=== PATIENT | male | born 1935 | race Caucasian/White ===

== ENCOUNTER 2017-04-16 18:57 | Inpatient (IN) | payer MEDICARE, MEDICAID ==
--- NOTE | 2017-04-16 19:12 | ED Physician Chart ---
Chief Complaint/HPI - Patient Information Date Seen:: 04/16/17 Time Seen:: 19:05 Chief Complaint:: Abdominal Pain History of Present Illness:: onset x 2 days of intermittent, crampy, RUQ Abd. Pain; pt denies C/P, SOB, A/N/V /D/C, fever, chills, or urinary s/s Historian:: Patient, Family Member Review:: Nurse's Note Reviewed Review of Systems - Review of Systems General/Constitutional: Fever, Chills, No weight loss, No weakness, No diaphoresis, No edema, No loss of appetite Skin: No skin lesions, No rash, No bruising Head: No headache, No light-headedness Eyes: No loss of vision, No pain, No diplopia ENT: No earache, No nasal drainage, No sore throat, No tinnitus Neck: No neck pain, No swelling, No thyromegaly, No stiffness, No mass noted Cardio Vascular: No chest pain, No palpitations, No PND, No orthopnea, No edema Pulmonary: No SOB, No cough, No sputum, No wheezing GI: Nausea, Vomiting, Diarrhea, Pain, No melena, No hematochezia, Constipation, No hematemesis G/U: No dysuria, No frequency, No hematuria, Nocturia Musculoskeletal: No bone or joint pain, No back pain, No muscle pain Endocrine: No polyuria, No polydipsia Psychiatric: No prior psych history, No depression, No anxiety, No suicidal ideation Hematopoietic: No bruising, No lymphadenopathy Allergic/Immuno: No urticaria, No angioedema Neurological: No syncope, No focal symptoms, No weakness, No paresthesia, No headache, No seizure, No dizziness, No confusion, No vertigo Past Medical History - Past Medical History Obtainable: Yes Past Medical History: Thyroid disorder, Other (Prostate Disease) Family History: Diabetes Melitus, HTN Social History: Non Smoker, No Alcohol, No Drug Use, Single Surgical History: None Psychiatricy History: None Medication: Reviewed Family Medical History - Family Member Son Ethnicity: Non- Living Status: Still Living Physical Exam - Physical Examination General/Constitutional: Awake, Well-developed, well-nourished, Alert, No distress, GCS 15, Non-toxic appearing, Ambulatory Head: Atraumatic Eyes: Lids, conjuctiva normal, PERRL, EOMI Skin: Nl inspection, No rash, No skin lesions, No ecchymosis, Well hydrated, No lymphadenopathy ENMT: External ears, nose nl, Nasal exam nl, Lips, teeth, gums nl Neck: Nontender, Full ROM w/o pain, No JVD, No nuchal rigidity, No bruit, No mass, No stridor Respiratory: Nl effort/Exclusion, Clear to Auscultation, No Wheeze/Rhonchi/Rales Cardio Vascular: RRR, No murmur, gallop, rubs, NL S1 S2 GI: No tenderness/rebounding/guarding, No organomegaly, No hernia, Normal BS's, Nondistended, No mass/bruits, No McBurney tenderness : No CVA tenderness Extremities: No tenderness or effusion, Full ROM, normal strength in all extremities, No edema, Normal digits & nails Neuro/Psych: Alert/oriented, DTR's symmetric, Normal sensory exam, Normal motor strength, Judgement/insight normal, Mood normal, Normal gait, No focal deficits Misc: normal gait, Normal back, No paraspinal tenderness Labs/Radiology/EKG Results - Lab Results Results: WBC: 19.1; Na+: 131;BNP: 294; - Radiology Results Results: + Liver Mass; Mesenteric Edema; Diverticulosis - EKG Interpretations Rate & Rhythm: NSR Comments:: Non-Specific ST-T Changes ED Septic Shock - . Is Septic Shock (SBP<90, OR Lactate>4 mmol\L) present?: No Reassessment (Disposition) - Reassessment Reassessment Condition:: Improved - Diagnosis Diagnosis:: Abdominal Pain; Liver Mass; Diverticulosis; PNA; Sepsis; Leukocytosis - Aftercare/Follow up Instructions Aftercare/Follow-Up Instructions:: Counseled pt regarding lab results/diagnosis & need follow up, Counseled pt & family regarding lab results/diagnosis & need follow up - Patient Disposition Discharge/Transfer:: Acute Care w/in this hosp Accepting Physician:: Dr. Webber Time Called:: 2099 Time Responded:: 21:00 Admitted to:: Med/Surg Spoke to:: Dr. Webber Admitting Medical Physician:: Dr. Webber Condition at Disposition:: Stable, Improved
[2017-04-16] MEDS ORDERED: Sodium Chloride 0.9% 1,000 ML IV ONE ×2 (19:13→21:32)
[2017-04-16 19:31] LABS: HEMATOCRIT 50.9 % (39.0-49.0); HEMOGLOBIN 17.2 gm/dL (12.6-17.4); MEAN CELL VOLUME 97.9 fl (80-99); MEAN CORPUSCULAR HEMOGLOBIN 33.1 pg (27.0-31.0); MEAN CORPUSCULAR HGB CONC 33.8 pg (28.0-36.0); MEAN PLATELET VOLUME 10.5 fl; PLATELET COUNT 112 Th/cmm (150-400); RED CELL DISTRIBUTION WIDTH 14.2 % (11.5-20.0)
[2017-04-16] MEDS ORDERED: Albuterol/Ipratropium Neb 3 ML AERS HHN ONE ×2 (19:48→19:52)
[2017-04-16 19:51] LABS: WHITE BLOOD COUNT 19.1 Th/cmm (4.8-10.8)
[2017-04-16 19:56] LABS: ALB/GLOB RATIO 1.2 (1.0-1.8); ALKALINE PHOSPHATASE 115 U/L (34-104); AMYLASE SERUM 38 U/L (29-103); ANION GAP 14.7 (7.0-16.0); BILIRUBIN,TOTAL 2.6 mg/dL (0.3-1.0); BUN - UREA NITROGEN 12 mg/dL (7-25); CALCIUM SERUM 9.6 mg/dL (8.6-10.3); CARBON DIOXIDE 20.2 mEq/L (21.0-31.0); CHLORIDE 100 mEq/L (98-107); CHOLESTEROL 133 mg/dL (<200); CREATININE - SERUM 0.8 mg/dL (0.7-1.3); GLUCOSE 174 mg/dL (70-105); LIPASE 18 U/L (11-82); POTASSIUM SERUM 3.9 mEq/L (3.5-5.1); SGOT 42 U/L (13-39); SGPT/ALT 40 U/L (7-52); SODIUM SERUM 131 mEq/L (136-145); TRIGLYCERIDES 79 mg/dL (<150)
[2017-04-16 19:58] LABS: TROP I < 0.01 ng/mL (0.01-0.05)
[2017-04-16 20:07] LABS: INR 1.15 (0.5-1.4); PROTHROMBIN TIME (TEST) 12.1 SECONDS (9.5-11.5)
[2017-04-16] MEDS ORDERED: Levofloxacin 500mg/100mL 500 MG/100 ML BAG IV ONE ×2 (20:40→20:49)
[2017-04-16 20:45] LABS: BAND NEUTROPHILE 4 % (0-10); BASOPHIL 0 % (0-3); EOSINOPHIL 0 % (0-5); NEUTROPHILS 82 % (40-80); PLATELET ESTIMATE ADEQUATE (NORMAL); PLATELET MORPHOLOGY NORMAL (NORMAL); TOTAL CELLS COUNTED 100
[2017-04-16 21:10] LABS: URINE BILIRUBIN NEGATIVE (NEGATIVE); URINE BLOOD TRACE (NEGATIVE); URINE GLUCOSE (UA) NEGATIVE (NEGATIVE); URINE KETONE 15 mg/dL (NEGATIVE); URINE PROTEIN TRACE mg/dL (NEGATIVE); URINE UROBILINOGEN 0.2 E.U./dL (0.2 - 1.0)
[2017-04-16 21:28] LABS: URINE COLOR YELLOW
[2017-04-16 21:29] LABS: URINE BACTERIA NONE SEEN /hpf (NONE SEEN); URINE EPITHELIAL CELLS NONE SEEN /lpf (FEW); URINE RBC NONE SEEN /hpf (0-5); URINE WBC NONE SEEN /hpf (0-5)
[2017-04-16] MEDS ORDERED: Piperacillin Sodium/Tazobact 3.375 gm Vial IV ONE (22:19)
[2017-04-16] MEDS: Morphine Sulfate 2 mg/mL 1mL Syr IVP PRN (22:31)
[2017-04-16] MEDS: metroNIDAZOLE 500mg/NS 100mL 500 MG/100 ML BAG IV SCH (22:31)
[2017-04-16] MEDS: D5-0.45NS 1,000 ML IV SCH (22:32)
--- NOTE | 2017-04-16 23:46 | Admit Criteria Form ---
Admit Criteria Forms - Admit Criteria Diagnosis: ABDOMINAL PAIN Clinical Indications for Admission to Inpatient Care (Place 'X' for any and all applicable criteria): Admission is indicated for ANY ONE of the following(1)(2)(3)(4)(5): [X ]I. Inpatient admission required rather than observation care (Also use Abdominal Pain: Observation Care, as appropriate) because of ANY ONE of the following: [ ]a) Severe pain requiring acute inpatient management [X ]b) Identification of etiology/finding that requires inpatient care (eg, aortic dissection, free air) [ ]c) Absent bowel sounds with complete ileus(6) [ ]d) Suspected toxic megacolon [ ]e) Severe electrolyte abnormalities requiring inpatient care [ ]f) High fever or infection requiring inpatient admission as indicated by ANY ONE of following(7)(8): [ ] i) Appropriate outpatient or observational care antimicrobial treatment unavailable, not effective, or not feasible [ ] ii) Documented bacteremia [ ] iii) Temperature > 104.9 degrees F (oral) [ ] iv) T >103.1 F (oral) or < 96.8 F(rectal) that does not respond to all emergency treatment measures [ ]g) Signs of intestinal obstruction [B] [ ]h) Hemodynamic instability [ ]i) IV fluid to replace significant ongoing losses (greater than 3 L/m2 per day) (12)(13) [ ]j) Percutaneous or open drainage (eg, abscess, biliary tract ) procedures [ ]k) Parenteral nutrition regimen that must be implemented on inpatient basis [ ]l) Other condition,treatment or monitoring requiring inpatient admission. [ ]II. Peritoneal signs present [ ]III. Surgery needed that cannot be performed on an ambulatory basis. [ ]IV. Evaluation requires patient to not eat or drink for extended period ( eg, more than 24 hours). [ ]V. Contraindications and/or Inappropriate clinical situations for Observational Care in patients with abdominal pain, when ANY ONE of the following is required: [ ]a) Thorough evaluation is required to prevent catastrophic events due to delays in diagnosing (e.g.Mesenteric ischemia) 1,3 [ ]b) Patient with severe pathology or with chronic symptoms unlikely to improve in the ED stay (3) [X ]. General contraindications and/or Inappropriate clinical situations for Observational Care in patients with abdominal pain, when ANY ONE of the following is required: [X ]a) Prediction of prolongation of LOS based on ANY ONE of the following may be considered as a contraindication for observational care 2, 3, 4, 5, 6, 7, 8, 9, 10, 11 [X ]i) Age > 65 yrs. [ ]ii) Patient arriving by ambulance [ ]iii) Patient with high acuity [ ]iv) Patient requiring vital sign monitoring [ ]v) Patient on IV medication [ ]b) Systolic blood pressures 180mmHg 3,12 [ ]c) Patient with altered mental status including delirium and other alteration of consciousness, (3) [ ]d) Patient whose discharge disposition will be to a correction home or rehabilitation home should not be managed in Emergency Department Observation Unit. CMS rule requires 3 days hospital stay before such placement.3,13 [ ]e) Patient with failure to thrive due to broad array of etiologies 3,16,17 [ ]f) Inability to ambulate 3,14 Extended stay beyond goal length of stay may be needed for(2)(3): [ ]a) Persistent abdominal pain with suspected intra-abdominal process [ ]b) Diagnosed condition requiring continued stay (e.g., pancreatitis, complicated diverticulitis) [ ]c) Surgery (e.g., colectomy) The original [email or web address] content created by [email or web address] has been revised. The portions of the content which have been revised are identified through the use of italic text or in bold, and [facility] has neither reviewed nor approved the modified material.All other unmodified content is copyright [facility]. Please see references footnoted in the original [facility] edition 2016 Admit Criteria Met?: Yes
--- NOTE | 2017-04-17 00:55 | History & Physical ---
ADMIT DATE: 04/16/2017 CHIEF COMPLAINT: Abdominal pain for 2 days duration. HISTORY OF PRESENT ILLNESS: The patient is an 81-year-old male with long history of hypothyroidism, benign prostatic hypertrophy, presented to the Emergency Room complaining of abdominal pain for a few days' duration. No nausea, no vomiting, evaluated by the ER physician. Initial workup was significant for a mass at the right side of the abdomen around the liver causing obstruction gallbladder. The patient was admitted to the hospital, started on IV fluids, and clear liquid diet. Dr. Ca consulted on the case. The patient denies any history of cholelithiasis or liver disease. He has history of peptic ulcer disease many years ago. PAST SURGICAL HISTORY: Significant for exploratory laparotomy for peptic ulcer disease. ALLERGIES: None. MEDICATIONS: Follow admission reconciliation. SOCIAL HISTORY: No smoking, no alcohol, no drug. FAMILY HISTORY: Noncontributory. REVIEW OF SYSTEMS: RENAL SYSTEM: No history of chronic renal disorder. CARDIOVASCULAR SYSTEM: No coronary artery disease. ENDOCRINE: No diabetes mellitus. He has history of hypothyroidism. GASTROINTESTINAL: He has acute abdominal pain, has history of peptic ulcer disease. NEUROLOGICAL SYSTEM: No seizure disorder. SKELETOMUSCULAR SYSTEM: No muscular dystrophy. HEMATOLOGIC SYSTEM: . GENITOURINARY: No dysuria or hematuria. PHYSICAL EXAMINATION: GENERAL: He is awake, alert, oriented, mildly in pain, not in distress. VITAL SIGNS: Temperature is 98.8, heart rate 86, blood pressure 131/63. HEENT: Normocephalic. Pupils reacting to light and accommodation. Sclerae clear. NECK: Supple. Negative for lymphadenopathy, JVD or bruit. CHEST: Bilateral normal. No rhonchi or wheezing. HEART: S1, S2 normal. No murmurs, rubs or gallop. ABDOMEN: Soft, mild tenderness to the right upper abdomen. Rebound negative. Bowel sounds positive. EXTREMITIES: No edema. NEUROLOGIC: Awake, alert, oriented. No focal motor or sensory deficits. Cranial nerves 2-12 is intact. LABORATORY DATA: White blood cells 19.1, hemoglobin 17.2, hematocrit 50.9, platelet is 112. PT 12.1, INR 1.15. Sodium 131, potassium 3.9, BUN 12, creatinine 0.8, glucose 174, AST 42, ALT 14, alkaline phosphatase 115. BNP 294. ASSESSMENT: 1. Acute abdominal pain. 2. Leukocytosis, possible acute cholecystitis. 3. Benign prostatic hypertrophy. 4. Hypothyroidism. 5. Thrombocytopenia. PLAN: The patient was admitted to the hospital under Dr. Martinez's service, IV fluid, IV Protonix, IV antibiotics, clear liquid diet. Dr. Ca consulted on the case. CBC, CMP for tomorrow. The patient is a full code. JOB# [id number]
[2017-04-17] MEDS ORDERED: Piperacillin Sodium/Tazobact 3.375 gm Vial IV ONE (04:42)
[2017-04-17] MEDS: metroNIDAZOLE 500mg/NS 100mL 500 MG/100 ML BAG IV SCH (04:44)
[2017-04-17 07:44] LABS: ALB/GLOB RATIO 1.2 (1.0-1.8); ALKALINE PHOSPHATASE 77 U/L (34-104); ANION GAP 13.1 (7.0-16.0); BILIRUBIN,TOTAL 2.1 mg/dL (0.3-1.0); BUN - UREA NITROGEN 13 mg/dL (7-25); BUN/CREATININE RATIO 18.6; CALCIUM SERUM 8.5 mg/dL (8.6-10.3); CARBON DIOXIDE 17.4 mEq/L (21.0-31.0); CHLORIDE 105 mEq/L (98-107); CREATININE - SERUM 0.7 mg/dL (0.7-1.3); GLUCOSE 144 mg/dL (70-105); POTASSIUM SERUM 3.5 mEq/L (3.5-5.1); SGOT 41 U/L (13-39); SGPT/ALT 37 U/L (7-52); SODIUM SERUM 132 mEq/L (136-145)
[2017-04-17 07:46] LABS: MEAN CELL VOLUME 96.7 fl (80-99); MEAN CORPUSCULAR HEMOGLOBIN 33.6 pg (27.0-31.0); MEAN CORPUSCULAR HGB CONC 34.8 pg (28.0-36.0); MEAN PLATELET VOLUME 11.1 fl; RED BLOOD COUNT 4.34 Mil/cmm (3.80-5.80); RED CELL DISTRIBUTION WIDTH 14.3 % (11.5-20.0)
[2017-04-17 08:34] LABS: HEMATOCRIT 41.9 % (39.0-49.0); HEMOGLOBIN 14.6 gm/dL (12.6-17.4); PLATELET COUNT NOT ABLE TO PERFORM Th/cmm (150-400)
[2017-04-17 09:13] LABS: BAND NEUTROPHILE 14 % (0-10); NEUTROPHILS 76 % (40-80); PLATELET ESTIMATE DECREASED PLATELETS (NORMAL); PLATELET MORPHOLOGY NORMAL (NORMAL); TOTAL CELLS COUNTED 100
--- NOTE | 2017-04-17 09:57 | Diagnostic Imaging Report ---
CHEST X-RAY: AP view INDICATION: pain COMPARISON: None FINDINGS: Chronic lung changes are seen with bibasal subsegmental atelectasis versus scarring. No focal consolidation or pleural effusions. Heart size is normal. Atherosclerosis is noted. Degenerative changes of the spine and shoulders are noted. IMPRESSION: Chronic lung changes and bibasal subsegmental atelectasis versus scarring. No focal consolidation identified. Atherosclerotic vascular disease.
--- NOTE | 2017-04-17 10:32 | Diagnostic Imaging Report ---
CT abdomen and pelvis without intravenous contrast Indication: Abdominal pain Comparison: None, Technique: Axial images were obtained from the lung bases to the bilateral proximal femurs without IV contrast. Coronal reconstructions were made. total DLP: 642, CTDI12.1 FINDINGS: Atelectatic changes and hypodensity changes of the lung bases are noted. Exam is limited due to lack of IV contrast. Cirrhotic liver is seen with areas of heterogeneous density. The gallbladder is markedly distended containing intraluminal high density intraluminal mass. Mild surrounding inflammatory changes are also noted. A trace free fluid is seen tracking down the gallbladder fossa. No focal splenic lesions. No evidence of focal pancreatic lesions. No focal adrenal lesions. There is a 2.1 cm left renal cyst. No evidence of hydronephrosis or focal renal lesions. Enlarged prostate measuring 6.8 x 4 cm. Moderate amount of stool is seen throughout the colon. Bowel underdistention versus there bowel wall thickening of the ascending colon noted. No appendicitis. No evidence of free abdominal air. Atherosclerotic vascular disease is noted. The urinary bladder is underdistended limiting evaluation. A small left-sided urinary bladder wall diverticulum is noted. Degenerative changes of the spine are noted. IMPRESSION: Distended gallbladder with intraluminal density which may represent a mass lesion. Neoplastic process cannot be excluded. Other etiologies would include intraluminal gallbladder hemorrhage or less likely gallstones. There may be superimposed cholecystitis as surrounding mild inflammatory changes and trace fluid is noted. Recommend clinical correlation and follow-up with ultrasound. Mild diverticulosis without evidence of diverticulitis. There is a bowel wall prominence of the ascending colon are noted which may be due to underdistention versus less likely inflammatory process. Suspect early cirrhotic changes of the liver. There are heterogeneous areas with areas of low density within the right lobe of the liver which may be due to areas of fatty infiltration, however, occult lesion cannot be excluded. Recommend short-term follow-up CT with IV contrast. Enlarged prostate gland. Please clinically clinical findings. Left renal cyst. Small left-sided urinary bladder wall diverticulum. Mild atherosclerotic vascular disease.
[2017-04-17] MEDS ORDERED: VTE Chemical Prophylaxis Screen/Admission MC PRN (11:45)
[2017-04-17] MEDS: D5-0.45NS 1,000 ML IV SCH ×2 (12:48→23:19)
--- NOTE | 2017-04-17 16:05 | General Progress Note ---
Subjective - Review of Systems Service Date: 04/17/17 Events since last encounter: seen in consult CT distended GB LFT high, question of cirrhosis MRCP ordered Objective - Results Result Diagrams: 04/17/17 07:00 04/17/17 07:00 Recent Labs: Laboratory Last Values WBC 15.0 Th/cmm (4.8-10.8) H D 04/17/17 07:00 RBC 4.34 Mil/cmm (3.80-5.80) 04/17/17 07:00 Hgb 14.6 gm/dL (12.6-17.4) D 04/17/17 07:00 Hct 41.9 % (39.0-49.0) D 04/17/17 07:00 MCV 96.7 fl (80-99) 04/17/17 07:00 MCH 33.6 pg (27.0-31.0) H 04/17/17 07:00 MCHC Differential 34.8 pg (28.0-36.0) 04/17/17 07:00 RDW 14.3 % (11.5-20.0) 04/17/17 07:00 Plt Count NOT ABLE TO PERFORM Th/cmm (150-400) D 04/17/17 07:00 MPV 11.1 fl 04/17/17 07:00 Band Neutrophils % 14 % (0-10) H 04/17/17 07:00 Neutrophils (Manual) 76 % (40-80) 04/17/17 07:00 Lymphocytes 6 % (20-50) L 04/17/17 07:00 Monocytes 4 % (2-10) 04/17/17 07:00 Eosinophils 0 % (0-5) 04/16/17 19:23 Basophils 0 % (0-3) 04/16/17 19:23 Platelet Estimate DECREASED PLATELETS (NORMAL) 04/17/17 07:00 Platelet Morphology NORMAL (NORMAL) 04/17/17 07:00 RBC Morph Micro Appear NORMAL (NORMAL) 04/17/17 07:00 PT 12.1 SECONDS (9.5-11.5) H 04/16/17 19:23 INR 1.15 (0.5-1.4) 04/16/17 19:23 Sodium 132 mEq/L (136-145) L 04/17/17 07:00 Potassium 3.5 mEq/L (3.5-5.1) 04/17/17 07:00 Chloride 105 mEq/L (98-107) 04/17/17 07:00 Carbon Dioxide 17.4 mEq/L (21.0-31.0) L 04/17/17 07:00 Anion Gap 13.1 (7.0-16.0) 04/17/17 07:00 BUN 13 mg/dL (7-25) 04/17/17 07:00 Creatinine 0.7 mg/dL (0.7-1.3) 04/17/17 07:00 Est GFR ( Amer) TNP 04/17/17 07:00 Est GFR (Non-Af Amer) TNP 04/17/17 07:00 BUN/Creatinine Ratio 18.6 04/17/17 07:00 Glucose 144 mg/dL (70-105) H 04/17/17 07:00 Whole Bld Lactic Acid 2.63 mmol/L (0.60-1.99) H* 04/16/17 22:48 Calcium 8.5 mg/dL (8.6-10.3) L 04/17/17 07:00 Total Bilirubin 2.1 mg/dL (0.3-1.0) H 04/17/17 07:00 AST 41 U/L (13-39) H 04/17/17 07:00 ALT 37 U/L (7-52) 04/17/17 07:00 Alkaline Phosphatase 77 U/L (34-104) 04/17/17 07:00 Creatine Kinase 73 U/L (30-223) 04/16/17 19:23 Troponin I < 0.01 ng/mL (0.01-0.05) L 04/16/17 19:23 B-Natriuretic Peptide 294.0 pg/mL (5.0-100.0) H 04/16/17 19:23 Total Protein 5.7 gm/dL (6.0-8.3) L 04/17/17 07:00 Albumin 3.1 gm/dL (4.2-5.5) L 04/17/17 07:00 Globulin 2.6 gm/dL 04/17/17 07:00 Albumin/Globulin Ratio 1.2 (1.0-1.8) 04/17/17 07:00 Triglycerides 79 mg/dL (<150) 04/16/17 19:23 Cholesterol 133 mg/dL (<200) 04/16/17 19:23 LDL Cholesterol Direct 89 mg/dL (75-193) 04/16/17 19:23 HDL Cholesterol 46 mg/dL (23-92) 04/16/17 19:23 Amylase 38 U/L (29-103) 04/16/17 19:23 Lipase 18 U/L (11-82) 04/16/17 19:23 Urine Source CLEAN C 04/16/17 20:12 Urine Color YELLOW 04/16/17 20:12 Urine Clarity CLEAR (CLEAR) 04/16/17 20:12 Urine pH 6.0 (4.6 - 8.0) 04/16/17 20:12 Ur Specific [place] >= 1.030 (1.005-1.030) 04/16/17 20:12 Urine Protein TRACE mg/dL (NEGATIVE) 04/16/17 20:12 Urine Glucose (UA) NEGATIVE mg/dL (NEGATIVE) 04/16/17 20:12 Urine Ketones 15 mg/dL (NEGATIVE) H 04/16/17 20:12 Urine Blood TRACE (NEGATIVE) 04/16/17 20:12 Urine Nitrate NEGATIVE (NEGATIVE) 04/16/17 20:12 Urine Bilirubin NEGATIVE (NEGATIVE) 04/16/17 20:12 Urine Urobilinogen 0.2 E.U./dL (0.2 - 1.0) 04/16/17 20:12 Ur Leukocyte Esterase NEGATIVE (NEGATIVE) 04/16/17 20:12 Urine RBC NONE SEEN /hpf (0-5) 04/16/17 20:12 Urine WBC NONE SEEN /hpf (0-5) 04/16/17 20:12 Ur Epithelial Cells NONE SEEN /lpf (FEW) 04/16/17 20:12 Urine Bacteria NONE SEEN /hpf (NONE SEEN) 04/16/17 20:12 - Physical Exam Vitals and I&O: Vital Signs Temp 99.0 F 04/17/17 11:51 Pulse 82 04/17/17 11:51 Resp 19 04/17/17 11:51 BP 113/59 04/17/17 11:51 Pulse Ox 96 04/17/17 11:51 Intake & Output 04/16/17 04/17/17 04/17/17 18:59 06:59 18:59 Intake Total 1350 1000 Balance 1350 1000 Weight (lbs) 84.822 kg Intake: Intake, IV Amount 1250 1000 D5-0.45NS 1,000 ml @ 100 1000 mls/hr IV .Q10H [facility] Rx#: [id number] Piperacillin Sodium/ 50 Tazobact 3.375 gm In Sodium Chloride 0.9% 50 ml @ 100 mls/hr IV Q6HR [facility] Rx#:[id number] metroNIDAZOLE 500mg/NS 200 100mL 500 mg In 100 ml @ 100 mls/hr IV Q8HR [facility] Rx #:[id number] Oral 100 Other: # Voids 1 Active Medications: Current Medications Heparin Sodium (Porcine) (Heparin) 5,000 units SUBQ Q12HR [facility] Stop: 06/16/17 20:59 Dextrose/Sodium Chloride (D5-0.45ns) 1,000 mls @ 100 mls/hr IV .Q10H [facility] Stop: 06/15/17 22:02 Last Admin: 04/17/17 12:48 Dose: 100 mls/hr Piperacillin Sod/Tazobactam (Sod 3.375 gm/ Sodium Chloride) 50 mls @ 100 mls/ hr IV Q6HR [facility] Stop: 06/16/17 00:00 Last Admin: 04/17/17 06:05 Dose: 100 mls/hr Gentamicin Sulfate 140 mg/ (Sodium Chloride) 103.5 mls @ 100 mls/hr IV Q12H [facility] Stop: 06/16/17 16:59 Miscellaneous ([employer] Prophylaxis Screen/ Admission) 1 [facility] PRN PRN PRN Reason: PROTOCOL Stop: 06/16/17 11:44 Miscellaneous (Gentamicin Iv Per Pharmacy) 1 [facility] PRN PRN PRN Reason: PROTOCOL Stop: 06/16/17 14:13 Morphine Sulfate (Morphine) 2 mg IVP Q4H PRN PRN Reason: Pain (Moderate) Stop: 06/15/17 22:02 Last Admin: 04/16/17 22:31 Dose: 2 mg Ondansetron HCl (Zofran) 4 mg IV Q4H PRN PRN Reason: Nausea / Vomiting Stop: 06/15/17 22:02 Pantoprazole Sodium (Protonix) 40 mg IVP DAILY [facility] Stop: 06/16/17 08:59 Last Admin: 04/17/17 09:44 Dose: 40 mg
--- NOTE | 2017-04-17 18:07 | Internal Medicine Prog Note ---
Internal Medicine Subjective - Subjective Service Date: 04/17/17 Patient seen and examined:: without staff Patient is:: awake, in wheelchair Patient Complaints of:: other (mild abdominal pain) Per staff patient has:: no adverse event Internal Medicine Objective - Results Result Diagrams: 04/17/17 07:00 04/17/17 07:00 Recent Labs: Laboratory Last Values WBC 15.0 Th/cmm (4.8-10.8) H D 04/17/17 07:00 RBC 4.34 Mil/cmm (3.80-5.80) 04/17/17 07:00 Hgb 14.6 gm/dL (12.6-17.4) D 04/17/17 07:00 Hct 41.9 % (39.0-49.0) D 04/17/17 07:00 MCV 96.7 fl (80-99) 04/17/17 07:00 MCH 33.6 pg (27.0-31.0) H 04/17/17 07:00 MCHC Differential 34.8 pg (28.0-36.0) 04/17/17 07:00 RDW 14.3 % (11.5-20.0) 04/17/17 07:00 Plt Count NOT ABLE TO PERFORM Th/cmm (150-400) D 04/17/17 07:00 MPV 11.1 fl 04/17/17 07:00 Band Neutrophils % 14 % (0-10) H 04/17/17 07:00 Neutrophils (Manual) 76 % (40-80) 04/17/17 07:00 Lymphocytes 6 % (20-50) L 04/17/17 07:00 Monocytes 4 % (2-10) 04/17/17 07:00 Eosinophils 0 % (0-5) 04/16/17 19:23 Basophils 0 % (0-3) 04/16/17 19:23 Platelet Estimate DECREASED PLATELETS (NORMAL) 04/17/17 07:00 Platelet Morphology NORMAL (NORMAL) 04/17/17 07:00 RBC Morph Micro Appear NORMAL (NORMAL) 04/17/17 07:00 PT 12.1 SECONDS (9.5-11.5) H 04/16/17 19:23 INR 1.15 (0.5-1.4) 04/16/17 19:23 Sodium 132 mEq/L (136-145) L 04/17/17 07:00 Potassium 3.5 mEq/L (3.5-5.1) 04/17/17 07:00 Chloride 105 mEq/L (98-107) 04/17/17 07:00 Carbon Dioxide 17.4 mEq/L (21.0-31.0) L 04/17/17 07:00 Anion Gap 13.1 (7.0-16.0) 04/17/17 07:00 BUN 13 mg/dL (7-25) 04/17/17 07:00 Creatinine 0.7 mg/dL (0.7-1.3) 04/17/17 07:00 Est GFR ( Amer) TNP 04/17/17 07:00 Est GFR (Non-Af Amer) TNP 04/17/17 07:00 BUN/Creatinine Ratio 18.6 04/17/17 07:00 Glucose 144 mg/dL (70-105) H 04/17/17 07:00 Whole Bld Lactic Acid 2.63 mmol/L (0.60-1.99) H* 04/16/17 22:48 Calcium 8.5 mg/dL (8.6-10.3) L 04/17/17 07:00 Total Bilirubin 2.1 mg/dL (0.3-1.0) H 04/17/17 07:00 AST 41 U/L (13-39) H 04/17/17 07:00 ALT 37 U/L (7-52) 04/17/17 07:00 Alkaline Phosphatase 77 U/L (34-104) 04/17/17 07:00 Creatine Kinase 73 U/L (30-223) 04/16/17 19:23 Troponin I < 0.01 ng/mL (0.01-0.05) L 04/16/17 19:23 B-Natriuretic Peptide 294.0 pg/mL (5.0-100.0) H 04/16/17 19:23 Total Protein 5.7 gm/dL (6.0-8.3) L 04/17/17 07:00 Albumin 3.1 gm/dL (4.2-5.5) L 04/17/17 07:00 Globulin 2.6 gm/dL 04/17/17 07:00 Albumin/Globulin Ratio 1.2 (1.0-1.8) 04/17/17 07:00 Triglycerides 79 mg/dL (<150) 04/16/17 19:23 Cholesterol 133 mg/dL (<200) 04/16/17 19:23 LDL Cholesterol Direct 89 mg/dL (75-193) 04/16/17 19:23 HDL Cholesterol 46 mg/dL (23-92) 04/16/17 19:23 Amylase 38 U/L (29-103) 04/16/17 19:23 Lipase 18 U/L (11-82) 04/16/17 19:23 Urine Source CLEAN C 04/16/17 20:12 Urine Color YELLOW 04/16/17 20:12 Urine Clarity CLEAR (CLEAR) 04/16/17 20:12 Urine pH 6.0 (4.6 - 8.0) 04/16/17 20:12 Ur Specific [place] >= 1.030 (1.005-1.030) 04/16/17 20:12 Urine Protein TRACE mg/dL (NEGATIVE) 04/16/17 20:12 Urine Glucose (UA) NEGATIVE mg/dL (NEGATIVE) 04/16/17 20:12 Urine Ketones 15 mg/dL (NEGATIVE) H 04/16/17 20:12 Urine Blood TRACE (NEGATIVE) 04/16/17 20:12 Urine Nitrate NEGATIVE (NEGATIVE) 04/16/17 20:12 Urine Bilirubin NEGATIVE (NEGATIVE) 04/16/17 20:12 Urine Urobilinogen 0.2 E.U./dL (0.2 - 1.0) 04/16/17 20:12 Ur Leukocyte Esterase NEGATIVE (NEGATIVE) 04/16/17 20:12 Urine RBC NONE SEEN /hpf (0-5) 04/16/17 20:12 Urine WBC NONE SEEN /hpf (0-5) 04/16/17 20:12 Ur Epithelial Cells NONE SEEN /lpf (FEW) 04/16/17 20:12 Urine Bacteria NONE SEEN /hpf (NONE SEEN) 04/16/17 20:12 - Physical Exam Vitals and I&O: Vital Signs Temp 98.9 F 04/17/17 16:08 Pulse 80 04/17/17 16:08 Resp 18 04/17/17 16:08 BP 117/60 04/17/17 16:08 Pulse Ox 95 04/17/17 16:08 Intake & Output 04/16/17 04/17/17 04/17/17 18:59 06:59 18:59 Intake Total 1350 1000 Balance 1350 1000 Weight (lbs) 84.822 kg Intake: Intake, IV Amount 1250 1000 D5-0.45NS 1,000 ml @ 100 1000 mls/hr IV .Q10H [facility] Rx#: [id number] Piperacillin Sodium/ 50 Tazobact 3.375 gm In Sodium Chloride 0.9% 50 ml @ 100 mls/hr IV Q6HR [facility] Rx#:[id number] metroNIDAZOLE 500mg/NS 200 100mL 500 mg In 100 ml @ 100 mls/hr IV Q8HR [facility] Rx #:[id number] Oral 100 Other: # Voids 1 Active Medications: Current Medications Heparin Sodium (Porcine) (Heparin) 5,000 units SUBQ Q12HR [facility] Stop: 06/16/17 20:59 Dextrose/Sodium Chloride (D5-0.45ns) 1,000 mls @ 100 mls/hr IV .Q10H [facility] Stop: 06/15/17 22:02 Last Admin: 04/17/17 12:48 Dose: 100 mls/hr Piperacillin Sod/Tazobactam (Sod 3.375 gm/ Sodium Chloride) 50 mls @ 100 mls/ hr IV Q6HR [facility] Stop: 06/16/17 00:00 Last Admin: 04/17/17 06:05 Dose: 100 mls/hr Gentamicin Sulfate 140 mg/ (Sodium Chloride) 103.5 mls @ 100 mls/hr IV Q12H [facility] Stop: 06/16/17 16:59 Last Admin: 04/17/17 16:44 Dose: 100 mls/hr Miscellaneous (Vte Chemical Prophylaxis Screen/ Admission) 1 ea MC PRN PRN PRN Reason: PROTOCOL Stop: 06/16/17 11:44 Miscellaneous (Gentamicin Iv Per Pharmacy) 1 ea MC PRN PRN PRN Reason: PROTOCOL Stop: 06/16/17 14:13 Morphine Sulfate (Morphine) 2 mg IVP Q4H PRN PRN Reason: Pain (Moderate) Stop: 06/15/17 22:02 Last Admin: 04/16/17 22:31 Dose: 2 mg Ondansetron HCl (Zofran) 4 mg IV Q4H PRN PRN Reason: Nausea / Vomiting Stop: 06/15/17 22:02 Pantoprazole Sodium (Protonix) 40 mg IVP DAILY [facility] Stop: 06/16/17 08:59 Last Admin: 04/17/17 09:44 Dose: 40 mg General: alert HEENT: NC/AT, PERRLA, EOMI, anicteric sclerae Neck: Supple, No JVD, No thyromegaly Lungs: CTAB Cardiovascular: RRR, Normal S1, Normal S2 Abdomen: soft, non-tender Extremities: clear Neurological: alert Internal Medicine Assmt/Plan - Assessment Assessment: 1.ACUTE ABDOMINAL PAIN. 2.BACTREMIA. 3.POSSIBLE ACUTE CHOLECYSTITIS. 4.HYPONATREMIA. - Plan Plan: CONTINUE ON CURRENT MEDICATION AND DIET.
--- NOTE | 2017-04-17 23:02 | Consultation ---
DATE OF CONSULTATION: 04/17/2017 PRIMARY CARE PHYSICIAN: Dr. Martinez. HISTORY OF PRESENT ILLNESS: This is an 81-year-old male who was brought to the Emergency Room with complaint of abdominal pain localized to the upper abdomen, more on the right side for 2 days, gradually got worsened, decided to come to Emergency Room, where the patient was evaluated and admitted to Medical/Surgical. The patient's blood culture was positive for gram negative jamil, antibiotic adjusted. The patient examined right away. PAST MEDICAL HISTORY: Laparotomy and peptic ulcer disease, nonsmoker. REVIEW OF SYSTEMS: A 14-point review of systems negative except above. SOCIAL HISTORY: The patient is a nonsmoker. FAMILY HISTORY: No family history. ALLERGIES: No allergies. PHYSICAL EXAMINATION: GENERAL: The patient is alert and awake, not in any distress. VITAL SIGNS: Temperature 100.4, pulse 96, respiration 16, and blood pressure 136/76. HEENT: Mild pallor, no icterus or plaque. NECK: Supple. LUNGS: Breath sounds bilateral. CARDIOVASCULAR: S1 and S2. ABDOMEN: Right-sided tenderness. 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 CAT scan of the abdomen shows distended gallbladder with mass lesion, chest fluid, suggestive of superimposed cholecystitis, diverticulosis, early cirrhotic changes. Prostate gland enlargement, renal cyst. LABS ARE FOLLOWS: White count is 15,000, hemoglobin is 14 g, and platelets 112,000. DIAGNOSES: Gram-negative jamil sepsis, probably secondary to intraabdominal source, diverticulitis versus cholecystitis. Dr. Ca consulted, and the patient started on gentamicin. Continue Zosyn. We will discontinue Flagyl. Supportive care. Rest of the care as ordered in [facility]PO[facility]. OTHER DIAGNOSES: Benign prostatic hypertrophy and possible bilateral basal pneumonia. PLAN: To continue with the above antibiotics, repeat CBC tomorrow. Supportive care. Pain control and HIDA scan if okay with Dr. Ca. Thank you Dr. Martinez for this consultation. JOB# [id number]
[2017-04-18 05:55] LABS: HEMATOCRIT 40.4 % (39.0-49.0); HEMOGLOBIN 13.7 gm/dL (12.6-17.4); MEAN CELL VOLUME 98.6 fl (80-99); MEAN CORPUSCULAR HEMOGLOBIN 33.5 pg (27.0-31.0); MEAN CORPUSCULAR HGB CONC 33.9 pg (28.0-36.0); MEAN PLATELET VOLUME 10.8 fl; RED BLOOD COUNT 4.09 Mil/cmm (3.80-5.80); RED CELL DISTRIBUTION WIDTH 14.5 % (11.5-20.0)
[2017-04-18 07:03] LABS: WHITE BLOOD COUNT 10.5 Th/cmm (4.8-10.8)
[2017-04-18 08:19] LABS: PLATELET COUNT NOT ABLE TO PERFORM Th/cmm (150-400)
[2017-04-18 08:20] LABS: BAND NEUTROPHILE 11 % (0-10); NEUTROPHILS 79 % (40-80); TOTAL CELLS COUNTED 100
[2017-04-18 08:21] LABS: PLATELET ESTIMATE DECREASED PLATELETS (NORMAL); PLATELET MORPHOLOGY PLATELET CLUMPS SEEN (NORMAL)
[2017-04-18] MEDS: Morphine Sulfate 2 mg/mL 1mL Syr IVP PRN (11:21)
[2017-04-18] MEDS: D5-0.45NS 1,000 ML IV SCH (11:54)
--- NOTE | 2017-04-18 14:51 | General Progress Note ---
Subjective - Review of Systems Service Date: 04/18/17 Events since last encounter: labs elevated LFT MRCP ordered, await results Objective - Results Result Diagrams: 04/18/17 04:34 04/17/17 07:00 Recent Labs: Laboratory Last Values WBC 10.5 Th/cmm (4.8-10.8) D 04/18/17 04:34 RBC 4.09 Mil/cmm (3.80-5.80) 04/18/17 04:34 Hgb 13.7 gm/dL (12.6-17.4) 04/18/17 04:34 Hct 40.4 % (39.0-49.0) 04/18/17 04:34 MCV 98.6 fl (80-99) 04/18/17 04:34 MCH 33.5 pg (27.0-31.0) H 04/18/17 04:34 MCHC Differential 33.9 pg (28.0-36.0) 04/18/17 04:34 RDW 14.5 % (11.5-20.0) 04/18/17 04:34 Plt Count NOT ABLE TO PERFORM Th/cmm (150-400) 04/18/17 04:34 MPV 10.8 fl 04/18/17 04:34 Band Neutrophils % 11 % (0-10) H 04/18/17 04:34 Neutrophils (Manual) 79 % (40-80) 04/18/17 04:34 Lymphocytes 9 % (20-50) L 04/18/17 04:34 Monocytes 1 % (2-10) L 04/18/17 04:34 Eosinophils 0 % (0-5) 04/16/17 19:23 Basophils 0 % (0-3) 04/16/17 19:23 Platelet Estimate DECREASED PLATELETS (NORMAL) 04/18/17 04:34 Platelet Morphology PLATELET CLUMPS SEEN (NORMAL) 04/18/17 04:34 RBC Morph Micro Appear NORMAL (NORMAL) 04/18/17 04:34 PT 12.1 SECONDS (9.5-11.5) H 04/16/17 19:23 INR 1.15 (0.5-1.4) 04/16/17 19:23 Sodium 132 mEq/L (136-145) L 04/17/17 07:00 Potassium 3.5 mEq/L (3.5-5.1) 04/17/17 07:00 Chloride 105 mEq/L (98-107) 04/17/17 07:00 Carbon Dioxide 17.4 mEq/L (21.0-31.0) L 04/17/17 07:00 Anion Gap 13.1 (7.0-16.0) 04/17/17 07:00 BUN 13 mg/dL (7-25) 04/17/17 07:00 Creatinine 0.7 mg/dL (0.7-1.3) 04/17/17 07:00 Est GFR ( Amer) TNP 04/17/17 07:00 Est GFR (Non-Af Amer) TNP 04/17/17 07:00 BUN/Creatinine Ratio 18.6 04/17/17 07:00 Glucose 144 mg/dL (70-105) H 04/17/17 07:00 Whole Bld Lactic Acid 2.63 mmol/L (0.60-1.99) H* 04/16/17 22:48 Calcium 8.5 mg/dL (8.6-10.3) L 04/17/17 07:00 Total Bilirubin 2.1 mg/dL (0.3-1.0) H 04/17/17 07:00 AST 41 U/L (13-39) H 04/17/17 07:00 ALT 37 U/L (7-52) 04/17/17 07:00 Alkaline Phosphatase 77 U/L (34-104) 04/17/17 07:00 Creatine Kinase 73 U/L (30-223) 04/16/17 19:23 Troponin I < 0.01 ng/mL (0.01-0.05) L 04/16/17 19:23 B-Natriuretic Peptide 294.0 pg/mL (5.0-100.0) H 04/16/17 19:23 Total Protein 5.7 gm/dL (6.0-8.3) L 04/17/17 07:00 Albumin 3.1 gm/dL (4.2-5.5) L 04/17/17 07:00 Globulin 2.6 gm/dL 04/17/17 07:00 Albumin/Globulin Ratio 1.2 (1.0-1.8) 04/17/17 07:00 Triglycerides 79 mg/dL (<150) 04/16/17 19:23 Cholesterol 133 mg/dL (<200) 04/16/17 19:23 LDL Cholesterol Direct 89 mg/dL (75-193) 04/16/17 19:23 HDL Cholesterol 46 mg/dL (23-92) 04/16/17 19:23 Amylase 38 U/L (29-103) 04/16/17 19:23 Lipase 18 U/L (11-82) 04/16/17 19:23 Urine Source CLEAN C 04/16/17 20:12 Urine Color YELLOW 04/16/17 20:12 Urine Clarity CLEAR (CLEAR) 04/16/17 20:12 Urine pH 6.0 (4.6 - 8.0) 04/16/17 20:12 Ur Specific [place] >= 1.030 (1.005-1.030) 04/16/17 20:12 Urine Protein TRACE mg/dL (NEGATIVE) 04/16/17 20:12 Urine Glucose (UA) NEGATIVE mg/dL (NEGATIVE) 04/16/17 20:12 Urine Ketones 15 mg/dL (NEGATIVE) H 04/16/17 20:12 Urine Blood TRACE (NEGATIVE) 04/16/17 20:12 Urine Nitrate NEGATIVE (NEGATIVE) 04/16/17 20:12 Urine Bilirubin NEGATIVE (NEGATIVE) 04/16/17 20:12 Urine Urobilinogen 0.2 E.U./dL (0.2 - 1.0) 04/16/17 20:12 Ur Leukocyte Esterase NEGATIVE (NEGATIVE) 04/16/17 20:12 Urine RBC NONE SEEN /hpf (0-5) 04/16/17 20:12 Urine WBC NONE SEEN /hpf (0-5) 04/16/17 20:12 Ur Epithelial Cells NONE SEEN /lpf (FEW) 04/16/17 20:12 Urine Bacteria NONE SEEN /hpf (NONE SEEN) 04/16/17 20:12 Gentamicin Trough 0.9 ug/ml (0.2-2.0) 04/18/17 04:34 - Physical Exam Vitals and I&O: Vital Signs Temp 98.8 F 04/18/17 11:54 Pulse 81 04/18/17 11:54 Resp 18 04/18/17 11:54 BP 115/61 04/18/17 11:54 Pulse Ox 97 04/18/17 11:54 Intake & Output 04/17/17 04/18/17 04/18/17 18:59 06:59 18:59 Intake Total 1153.5 1100 1000 Balance 1153.5 1100 1000 Intake: Intake, IV Amount 1153.5 1100 1000 D5-0.45NS 1,000 ml @ 100 1000 1000 1000 mls/hr IV .Q10H [facility] Rx#: [id number] Gentamicin 140 mg In 103.5 Sodium Chloride 0.9% 100 ml @ 100 mls/hr IV Q12H [facility] Rx#:[id number] Piperacillin Sodium/ 50 100 Tazobact 3.375 gm In Sodium Chloride 0.9% 50 ml @ 100 mls/hr IV Q6HR [facility] Rx#:[id number] Active Medications: Current Medications Heparin Sodium (Porcine) (Heparin) 5,000 units SUBQ Q12HR [facility] Stop: 06/16/17 20:59 Last Admin: 04/18/17 08:22 Dose: 5,000 units Dextrose/Sodium Chloride (D5-0.45ns) 1,000 mls @ 100 mls/hr IV .Q10H [facility] Stop: 06/15/17 22:02 Last Admin: 04/18/17 11:54 Dose: 100 mls/hr Piperacillin Sod/Tazobactam (Sod 3.375 gm/ Sodium Chloride) 50 mls @ 100 mls/ hr IV Q6HR [facility] Stop: 06/16/17 00:00 Last Admin: 04/18/17 11:54 Dose: 100 mls/hr Gentamicin Sulfate 140 mg/ (Sodium Chloride) 103.5 mls @ 100 mls/hr IV Q12H [facility] Stop: 06/16/17 16:59 Last Admin: 04/18/17 05:12 Dose: 100 mls/hr Miscellaneous ([facility] Chemical Prophylaxis Screen/ Admission) 1 ea PRN PRN PRN Reason: PROTOCOL Stop: 06/16/17 11:44 Miscellaneous (Gentamicin Iv Per Pharmacy) 1 ea PRN PRN PRN Reason: PROTOCOL Stop: 06/16/17 14:13 Morphine Sulfate (Morphine) 2 mg IVP Q4H PRN PRN Reason: Pain (Moderate) Stop: 06/15/17 22:02 Last Admin: 04/18/17 11:21 Dose: 2 mg Ondansetron HCl (Zofran) 4 mg IV Q4H PRN PRN Reason: Nausea / Vomiting Stop: 06/15/17 22:02 Pantoprazole Sodium (Protonix) 40 mg IVP DAILY [facility] Stop: 06/16/17 08:59 Last Admin: 04/18/17 10:34 Dose: Not Given
--- NOTE | 2017-04-18 16:50 | Diagnostic Imaging Report ---
MRI of the abdomen without intravenous contrast (MRCP) HISTORY: Pain Multiple MR sequences including 3-D high-resolution thin/thick slab provided. The exam is limited due to patient motion. The exam demonstrates a markedly dilated gallbladder. Extensive abnormal intraluminal density is seen. Mucosal pathology including neoplasm cannot be excluded. Sonographic evaluation may provide additional characterization. Evidence of pericholecystic fluid also seen. Inflammatory change cannot be ruled out. Suboptimal delineation of the common bile duct due to patient motion. No obvious dilatation. There is an approximate 1.7 cm lesion noted in the upper portion of the right lobe of the liver. This lesion is significantly less stickiness on a prior CT scan of 8-17. MRI signal characteristics are nonspecific. Again, neoplasm cannot be excluded. A three-phase dynamic CT scan of the liver provide additional characterization. No definite focal parenchymal abnormality seen within the pancreas. Right kidney appears normal. There appears to be an approximate 3.0 cm cyst in the region of the left renal pelvis. IMPRESSION: 1. Very Limited/suboptimal exam due to patient motion. 2. Markedly distended/dilated gallbladder with extensive intraluminal density. Mucosal pathology including a neoplastic etiology cannot be excluded. Small amount of pericholecystic fluid also noted. Superimposed inflammatory change cannot be ruled out. 3. Hepatic lesion as noted above. Etiology is indeterminate. Neoplasm cannot be excluded. A three-phase dynamic CT scan of the liver would provide additional characterization. 4. Small amount of ascites 5. Small bilateral pleural effusions
--- NOTE | 2017-04-18 19:14 | Internal Medicine Prog Note ---
Internal Medicine Subjective - Subjective Service Date: 04/18/17 Patient seen and examined:: with staff Patient is:: awake, in wheelchair Patient Complaints of:: other (mild abdominal pain) Per staff patient has:: no adverse event Internal Medicine Objective - Results Result Diagrams: 04/18/17 04:34 04/17/17 07:00 Recent Labs: Laboratory Last Values WBC 10.5 Th/cmm (4.8-10.8) D 04/18/17 04:34 RBC 4.09 Mil/cmm (3.80-5.80) 04/18/17 04:34 Hgb 13.7 gm/dL (12.6-17.4) 04/18/17 04:34 Hct 40.4 % (39.0-49.0) 04/18/17 04:34 MCV 98.6 fl (80-99) 04/18/17 04:34 MCH 33.5 pg (27.0-31.0) H 04/18/17 04:34 MCHC Differential 33.9 pg (28.0-36.0) 04/18/17 04:34 RDW 14.5 % (11.5-20.0) 04/18/17 04:34 Plt Count NOT ABLE TO PERFORM Th/cmm (150-400) 04/18/17 04:34 MPV 10.8 fl 04/18/17 04:34 Band Neutrophils % 11 % (0-10) H 04/18/17 04:34 Neutrophils (Manual) 79 % (40-80) 04/18/17 04:34 Lymphocytes 9 % (20-50) L 04/18/17 04:34 Monocytes 1 % (2-10) L 04/18/17 04:34 Eosinophils 0 % (0-5) 04/16/17 19:23 Basophils 0 % (0-3) 04/16/17 19:23 Platelet Estimate DECREASED PLATELETS (NORMAL) 04/18/17 04:34 Platelet Morphology PLATELET CLUMPS SEEN (NORMAL) 04/18/17 04:34 RBC Morph Micro Appear NORMAL (NORMAL) 04/18/17 04:34 PT 12.1 SECONDS (9.5-11.5) H 04/16/17 19:23 INR 1.15 (0.5-1.4) 04/16/17 19:23 Sodium 132 mEq/L (136-145) L 04/17/17 07:00 Potassium 3.5 mEq/L (3.5-5.1) 04/17/17 07:00 Chloride 105 mEq/L (98-107) 04/17/17 07:00 Carbon Dioxide 17.4 mEq/L (21.0-31.0) L 04/17/17 07:00 Anion Gap 13.1 (7.0-16.0) 04/17/17 07:00 BUN 13 mg/dL (7-25) 04/17/17 07:00 Creatinine 0.7 mg/dL (0.7-1.3) 04/17/17 07:00 Est GFR ( Amer) TNP 04/17/17 07:00 Est GFR (Non-Af Amer) TNP 04/17/17 07:00 BUN/Creatinine Ratio 18.6 04/17/17 07:00 Glucose 144 mg/dL (70-105) H 04/17/17 07:00 Whole Bld Lactic Acid 2.63 mmol/L (0.60-1.99) H* 04/16/17 22:48 Calcium 8.5 mg/dL (8.6-10.3) L 04/17/17 07:00 Total Bilirubin 2.1 mg/dL (0.3-1.0) H 04/17/17 07:00 AST 41 U/L (13-39) H 04/17/17 07:00 ALT 37 U/L (7-52) 04/17/17 07:00 Alkaline Phosphatase 77 U/L (34-104) 04/17/17 07:00 Creatine Kinase 73 U/L (30-223) 04/16/17 19:23 Troponin I < 0.01 ng/mL (0.01-0.05) L 04/16/17 19:23 B-Natriuretic Peptide 294.0 pg/mL (5.0-100.0) H 04/16/17 19:23 Total Protein 5.7 gm/dL (6.0-8.3) L 04/17/17 07:00 Albumin 3.1 gm/dL (4.2-5.5) L 04/17/17 07:00 Globulin 2.6 gm/dL 04/17/17 07:00 Albumin/Globulin Ratio 1.2 (1.0-1.8) 04/17/17 07:00 Triglycerides 79 mg/dL (<150) 04/16/17 19:23 Cholesterol 133 mg/dL (<200) 04/16/17 19:23 LDL Cholesterol Direct 89 mg/dL (75-193) 04/16/17 19:23 HDL Cholesterol 46 mg/dL (23-92) 04/16/17 19:23 Amylase 38 U/L (29-103) 04/16/17 19:23 Lipase 18 U/L (11-82) 04/16/17 19:23 Urine Source CLEAN C 04/16/17 20:12 Urine Color YELLOW 04/16/17 20:12 Urine Clarity CLEAR (CLEAR) 04/16/17 20:12 Urine pH 6.0 (4.6 - 8.0) 04/16/17 20:12 Ur Specific [place] >= 1.030 (1.005-1.030) 04/16/17 20:12 Urine Protein TRACE mg/dL (NEGATIVE) 04/16/17 20:12 Urine Glucose (UA) NEGATIVE mg/dL (NEGATIVE) 04/16/17 20:12 Urine Ketones 15 mg/dL (NEGATIVE) H 04/16/17 20:12 Urine Blood TRACE (NEGATIVE) 04/16/17 20:12 Urine Nitrate NEGATIVE (NEGATIVE) 04/16/17 20:12 Urine Bilirubin NEGATIVE (NEGATIVE) 04/16/17 20:12 Urine Urobilinogen 0.2 E.U./dL (0.2 - 1.0) 04/16/17 20:12 Ur Leukocyte Esterase NEGATIVE (NEGATIVE) 04/16/17 20:12 Urine RBC NONE SEEN /hpf (0-5) 04/16/17 20:12 Urine WBC NONE SEEN /hpf (0-5) 04/16/17 20:12 Ur Epithelial Cells NONE SEEN /lpf (FEW) 04/16/17 20:12 Urine Bacteria NONE SEEN /hpf (NONE SEEN) 04/16/17 20:12 Gentamicin Trough 1.3 ug/ml (0.2-2.0) 04/18/17 16:02 - Physical Exam Vitals and I&O: Vital Signs Temp 99.4 F 04/18/17 15:23 Pulse 81 04/18/17 15:23 Resp 17 08/04/17 15:23 BP 119/63 04/18/17 15:23 Pulse Ox 97 04/18/17 15:23 Intake & Output 04/18/17 04/18/17 04/19/17 06:59 18:59 06:59 Intake Total 1203.5 1130 Balance 1203.5 1130 Intake: Intake, IV Amount 1203.5 1130 D5-0.45NS 1,000 ml @ 100 1000 1000 mls/hr IV .Q10H [facility] Rx#: [id number] Gentamicin 140 mg In 103.5 80 Sodium Chloride 0.9% 100 ml @ 100 mls/hr IV Q12H [facility] Rx#:[id number] Piperacillin Sodium/ 100 50 Tazobact 3.375 gm In Sodium Chloride 0.9% 50 ml @ 100 mls/hr IV Q6HR [facility] Rx#:[id number] Active Medications: Current Medications Heparin Sodium (Porcine) (Heparin) 5,000 units SUBQ Q12HR [facility] Stop: 06/16/17 20:59 Last Admin: 04/18/17 08:22 Dose: 5,000 units Dextrose/Sodium Chloride (D5-0.45ns) 1,000 mls @ 100 mls/hr IV .Q10H [facility] Stop: 06/15/17 22:02 Last Admin: 04/18/17 11:54 Dose: 100 mls/hr Piperacillin Sod/Tazobactam (Sod 3.375 gm/ Sodium Chloride) 50 mls @ 100 mls/ hr IV Q6HR [facility] Stop: 06/16/17 00:00 Last Infusion: 04/18/17 18:27 Dose: Infused Gentamicin Sulfate 140 mg/ (Sodium Chloride) 103.5 mls @ 100 mls/hr IV Q12H [facility] Stop: 06/16/17 16:59 Last Infusion: 04/18/17 18:34 Dose: 100 mls/hr Miscellaneous (Vte Chemical Prophylaxis Screen/ Admission) 1 ea [facility] PRN PRN PRN Reason: PROTOCOL Stop: 06/16/17 11:44 Miscellaneous (Gentamicin Iv Per Pharmacy) 1 ea [facility] PRN PRN PRN Reason: PROTOCOL Stop: 06/16/17 14:13 Morphine Sulfate (Morphine) 2 mg IVP Q4H PRN PRN Reason: Pain (Moderate) Stop: 06/15/17 22:02 Last Admin: 04/18/17 11:21 Dose: 2 mg Ondansetron HCl (Zofran) 4 mg IV Q4H PRN PRN Reason: Nausea / Vomiting Stop: 06/15/17 22:02 Pantoprazole Sodium (Protonix) 40 mg IVP DAILY FELECIA Stop: 06/16/17 08:59 Last Admin: 04/18/17 10:34 Dose: Not Given General: alert HEENT: NC/AT, PERRLA, EOMI, anicteric sclerae Neck: Supple, No JVD, No thyromegaly Lungs: CTAB Cardiovascular: RRR, Normal S1, Normal S2 Abdomen: soft, non-tender Extremities: clear Neurological: alert Internal Medicine Assmt/Plan - Assessment Assessment: 1.ACUTE ABDOMINAL PAIN. 2.BACTEREMIA. 3.POSSIBLE ACUTE CHOLECYSTITIS. 4.HYPONATREMIA. - Plan Plan: CONTINUE ON CURRENT MEDICATION AND DIET.HE CAN BE TRANSFERED TO [facility] BY S.
== END 2017-04-18 22:45 | disposition short-term general hospital (02) | DRG 871 ==
LOC: ER 18:57 → MSI 21:15
PROVIDERS: ADMIT Family Medicine; ATTEND Family Medicine
DX: A41.50 Gram-negative sepsis, unspecified (principal); J18.9 Pneumonia, unspecified organism; K81.0 Acute cholecystitis; D69.6 Thrombocytopenia, unspecified; E87.1 Hypo-osmolality and hyponatremia; R16.0 Hepatomegaly, not elsewhere classified; N40.0 Benign prostatic hyperplasia without lower urinary tract symptoms; K27.9 Peptic ulcer, site unspecified, unspecified as acute or chronic, without hemorrhage or perforation; E03.9 Hypothyroidism, unspecified; K57.30 Diverticulosis of large intestine without perforation or abscess without bleeding; Z83.3 Family history of diabetes mellitus; Z82.49 Family history of ischemic heart disease and other diseases of the circulatory system
CPT/HCPCS: 36415-UA; 71010-TC; 80053-TC; 80061-TC; 80170-TC; 81001-TC; 82150-TC; 82550-TC; 83605; 83690-TC; 83880-TC; 84484-TC; 85007-TC; 85027-TC; 85610-TC; 90799; 93005; 94640; C9113; J1580; J1644; J1956; J2270; J2543; J7030; Z7610-TC